=== PATIENT | female | born 1960 | race Caucasian/White ===

== ENCOUNTER 2017-08-09 07:44 | Day surgery (SDC) | payer BC ==
[2017-08-07 13:02] VITALS: BMI 27.3
[~2017-08-09 07:44] MED LIST: LACTATED RINGERS 1,000 ML IV SCH
[2017-08-09 08:20] VITALS: RESP 16; TEMP 98.3
[2017-08-09] MEDS ORDERED: LIDOCAINE 1% 20 ML VIAL (10MG/ML) FOR IV START INTRADERMA ONE (08:20)
[2017-08-09] MEDS ORDERED: PROPOFOL 10 MG/ML 20 ML VIAL IV ONE (09:07)
--- NOTE | 2017-08-09 09:29 | P.PCN ---
Date of Procedure: 08/09/17 Procedure(s) Performed: BRIEF HISTORY: Patient is a 57-year-old pleasant female, scheduled for an elective colonoscopy as a part of screening for colorectal neoplasia. PROCEDURE PERFORMED: Colonoscopy with snare polypectomy. PREOPERATIVE DIAGNOSIS: Screening for colon cancer. IV sedation per Anesthesia. PROCEDURE: After informed consent was obtained, the patient, was brought into the endoscopy unit. IV sedation was administered by Anesthesia under continuous monitoring. Digital rectal examination was normal. Initially the Olympus CF- 160 flexible video colonoscope was then inserted in the rectum, gradually advanced into the cecum without any difficulty. Careful examination was performed as the scope was gradually being withdrawn. Ileocecal valve and the appendiceal orifice were visualized and appeared normal. Prep was excellent. Mucosa of the cecum, ascending colon, transverse colon, descending colon, appeared normal. In the sigmoid colon there was a 7 mm sessile polyp removed by snare polypectomy. In the rectal sigmoid colon at 20 cm from the anal verge there was a 1 cm broad-based polyp removed by snare polypectomy. The rest of the sigmoid colon, and rectum appeared normal. Retroflexion was performed in the rectum and no lesions were seen. The patient tolerated the procedure well. IMPRESSION: 7 mm sessile sigmoid colon polyp status post polypectomy 1 cm broad-based rectal sigmoid polyp status post polypectomy. RECOMMENDATIONS: Findings of this examination were discussed with the patient as well as her family. She was advised to follow with the biopsy result. If the biopsy shows a tubular adenoma, she can have a repeat colonoscopy in 3-5 years.
[2017-08-09 09:57] VITALS: BP 150/80; PULSE 71
== END 2017-08-09 10:16 | disposition home or self-care (01) ==
LOC: ORWHC2ENDO 07:44
PROVIDERS: ATTEND Internal Medicine Gastroenterology
DX: Z12.11 Encounter for screening for malignant neoplasm of colon (principal); K63.5 Polyp of colon; K21.9 Gastro-esophageal reflux disease without esophagitis; E07.9 Disorder of thyroid, unspecified; E78.5 Hyperlipidemia, unspecified; Z79.82 Long term (current) use of aspirin; Z79.890 Hormone replacement therapy; Z79.899 Other long term (current) drug therapy; F17.210 Nicotine dependence, cigarettes, uncomplicated
CPT/HCPCS: 88305; 45385; J2704

== ENCOUNTER → 2018-05-07 | Outpatient (CLI) | payer BC ==
--- NOTE | 2018-05-07 09:34 | US ---
EXAMINATION TYPE: US thyroid st tissue head/neck DATE OF EXAM: 05/07/2018 COMPARISON: NONE CLINICAL HISTORY: E03.8 Hypothyroidism; takes thyroid medication GLAND SIZE: Right Lobe: 3.3 x 1.0 x 1.9 cm Overall Parenchyma: heterogenous Left Lobe: 3.6 x 1.1 x 1.3 cm Overall Parenchyma: heterogeneous Isthmus Thickness: 0.4 cm NODULES RIGHT: # of nodules measured on right: 2 1. 0.8 x 1.0 x 0.7 cm hypoechoic solid nodule at the upper pole with well-defined margins. This nod ule is wider than tall and shows no intranodular vascularity. 2. 0.4 X 0.3 x 0.5 cm hypoechoic cystic nodule at the mid pole with well-defined margins. This nod ule is wider than tall and shows no intranodular vascularity. LEFT: # of nodules measured on left: 1 discreet of multiple nodules 1. 0.7 X 0.5 x 0.5 cm echogenic solid nodule at the mid pole with well-defined margins. This nodul e is wide as is tall and shows no intranodular vascularity. ISTHMUS: # of nodules measured in the isthmus: 0 Bilateral neck scanned, no evidence of lymphadenopathy. IMPRESSION: Bilateral subcentimeter thyroid nodules that do not fit size criteria for fine-needle aspiration at t his time. Surveillance is recommended in this overall multinodular goiter.
[2018-05-07 10:51] LABS: Albumin 4.6 g/dL (3.5-5.0); Calcium 10.2 mg/dL (8.4-10.2); Potassium 4.8 mmol/L (3.5-5.1); Total Bilirubin 0.4 mg/dL (0.2-1.3); Total Protein 7.6 g/dL (6.3-8.2)
== END | disposition home or self-care (01) ==
LOC: RADUSWWP 08:49
PROVIDERS: ATTEND Internal Medicine Endocrinology, Diabetes & Metabolism
DX: E04.2 Nontoxic multinodular goiter (principal); E78.2 Mixed hyperlipidemia; E03.8 Other specified hypothyroidism
CPT/HCPCS: 36415; 76536; 80053; 80061; 84443

== ENCOUNTER → 2018-12-19 | Outpatient (CLI) | payer BC ==
[2018-12-19 17:19] LABS: African American GFR (CKD) 94.9 (60.0-200.0); Albumin 4.5 g/dL (3.80-4.90); Albumin/Globulin Ratio 2.14 (1.60-3.17); Anion Gap 9.4 mmol/L (4.00-12.00); Calcium 9.2 mg/dL (8.7-10.3); Carbon Dioxide 29.6 mmol/L (21.6-31.8); Chol/HDL Ratio 2.03; Globulin 2.1 g/dL (1.6-3.3); LDL Cholesterol,Calculated 77.6 mg/dL (0.0-131.0); Non-African American GFR(CKD) 81.8 (60.0-200.0); Potassium 4.2 mmol/L (3.5-5.5); Total Bilirubin 0.4 mg/dL (0.3-1.2); Total Protein 6.6 g/dL (6.2-8.2); VLDL Calculation 26.4 mg/dL (5.00-40.00)
== END | disposition home or self-care (01) ==
LOC: LABWHC1 09:38
PROVIDERS: ATTEND Internal Medicine Endocrinology, Diabetes & Metabolism
DX: E78.2 Mixed hyperlipidemia (principal); E03.8 Other specified hypothyroidism
CPT/HCPCS: 36415; 80053; 80061; 84443

== ENCOUNTER → 2019-03-10 | Outpatient (CLI) | payer BC ==
--- NOTE | 2019-03-10 16:01 | CTL ---
EXAMINATION TYPE: CT Low Dose Lung DATE OF EXAM ORDERED: 03/10/2019 HISTORY: Personal history of tobacco abuse. Lung cancer screening CT DLP: [address] CTDI: 2.22 mGy Automated exposure control for dose reduction was used. SCREENING VISIT: Initial COMPARISON: None TECHNIQUE: Low dose computed tomography scan was performed through the chest at 1 mm thick sections a nd reconstructed images in the coronal plane at [address] DIAGNOSTIC QUALITY: Limited, but interpretable FINDINGS: LUNG NODULES: None. LUNGS: COPD: Severity: Mild paraseptal most appreciable at the lung apices. Fibrosis: Severity: None Lymph nodes: Nonenlarged Other findings: Minimal lingular atelectasis. Mild right basilar peribronchial cuffing. RIGHT PLEURAL SPACE: Effusion: None Calcification: None Thickening: None Pneumothorax: None LEFT PLEURAL SPACE: Effusion: None Calcification: None Thickening: None Pneumothorax: None HEART: Heart Size: Normal Coronary calcification: None Pericardial effusion: None OTHER FINDINGS: Upper abdomen: Mostly unremarkable with some artifact centrally. Bony thorax: Mild multilevel degenerative changes of the spine. Supraclavicular region: Normal IMPRESSION: Lung RADS 1-negative. Mild emphysematous changes of the lung apices are seen with mild ri ght peribronchial cuffing that can be seen in reactive or infectious airway disease. This could be ch ronic and reactive and underlying COPD or relate to acute bronchitis. FOLLOW UP CT CHEST RECOMMENDATION: Annual low dose CT thorax is recommended in [address] LUNG RAD: 1
== END | disposition home or self-care (01) ==
LOC: RADCTMAIN 15:29
PROVIDERS: ATTEND Family Medicine
DX: Z12.2 Encounter for screening for malignant neoplasm of respiratory organs (principal); J43.9 Emphysema, unspecified; F17.210 Nicotine dependence, cigarettes, uncomplicated

== ENCOUNTER → 2019-07-03 | Outpatient (CLI) | payer BC ==
--- NOTE | 2019-07-03 14:53 | US ---
EXAMINATION TYPE: US thyroid st tissue head/neck DATE OF EXAM: 07/03/2019 COMPARISON: US 05/07/2018 CLINICAL HISTORY: E04.2 Thyroid nodule. F/U previous GLAND SIZE: Right Lobe: 2.8 x 1.5 x 1.1 cm Overall Parenchyma: heterogenous Left Lobe: 3.2 x 1.2 x 0.8 cm Overall Parenchyma: heterogeneous Isthmus Thickness: 0.3 cm NODULES RIGHT: # of nodules measured on right: 1 1. 0.3 X 0.4 x 0.3 cm hypoechoic solid nodule at the mid pole with poorly defined margins; This no dule is wider than tall and shows no intranodular vascularity. Prior size: 0.4 x 0.5 x 0.3 cm LEFT: # of nodules measured on left: 1 1. 0.6 X 0.4 x 0.4 cm isoechoic solid nodule at the mid pole with well-defined margins; This nodul e is wider than tall and shows no intranodular vascularity. Prior size: 0.7 x 0.5 x 0.5 cm Bilateral neck scanned, no evidence of lymphadenopathy. Stable nodules bilaterally. IMPRESSION: Bilateral subcentimeter thyroid nodules, similar in size to the prior exam of 05/07/2018.
== END | disposition home or self-care (01) ==
LOC: RADUSWWP 14:14
PROVIDERS: ATTEND Internal Medicine Endocrinology, Diabetes & Metabolism
DX: E04.2 Nontoxic multinodular goiter (principal)
CPT/HCPCS: 76536

== ENCOUNTER → 2019-07-04 | Outpatient (CLI) | payer BC ==
[2019-07-04 16:43] LABS: Chol/HDL Ratio 2.44; LDL Cholesterol,Calculated 92.6 mg/dL (0.0-131.0); VLDL Calculation 44.4 mg/dL (5.00-40.00)
== END | disposition home or self-care (01) ==
LOC: LABWHC1 08:07
PROVIDERS: ATTEND Internal Medicine Endocrinology, Diabetes & Metabolism
DX: E03.8 Other specified hypothyroidism (principal); E78.2 Mixed hyperlipidemia
CPT/HCPCS: 36415; 80061; 84443

== ENCOUNTER → 2019-09-04 | Outpatient (CLI) | payer BC ==
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
== END | disposition home or self-care (01) ==
LOC: RADUSWWP 10:06
PROVIDERS: ATTEND Family Medicine
DX: N90.89 Other specified noninflammatory disorders of vulva and perineum (principal); S39.94XA Unspecified injury of external genitals, initial encounter
CPT/HCPCS: 76857

== ENCOUNTER → 2020-07-01 | Outpatient (CLI) | payer BC ==
[2020-07-01 08:35] LABS: T4, Free (Free Thyroxine) 1.09 ng/dL (0.78-2.19)
--- NOTE | 2020-07-01 16:09 | US ---
EXAMINATION TYPE: US thyroid st tissue head/neck DATE OF EXAM: 07/01/2020 COMPARISON: CLINICAL HISTORY: E042 Goiter,E78.2. Follow up nodules. On thyroid meds. GLAND SIZE: Right Lobe: 3.6 x 1.1 x 1.5 cm Overall Parenchyma: heterogenous Left Lobe: 2.7 x 1.0 x 1.1 cm Overall Parenchyma: heterogeneous Isthmus Thickness: 0.2 cm NODULES RIGHT: # of nodules measured on right: 1 1. 0.5 X 0.4 x 0.4 cm Mid pole solid or almost completely solid, hypoechoic nodule, which is wide a s tall, with ill-defined margins, without echogenic foci. Prior size: 0.3 x 0.4 x 0.3 cm LEFT: # of nodules measured on left: 1 1. 0.6 X 0.5 x 0.4 cm Mid pole solid or almost completely solid, hypoechoic nodule, which is wider than tall, with smooth margins, without echogenic foci. Prior size: 0.6 x 0.4 x 0.4 cm ISTHMUS: # of nodules measured in the isthmus: 0 Bilateral neck scanned, no evidence of lymphadenopathy. IMPRESSION: Subcentimeter nodules bilateral thyroid lobes 2017 ACR TI-RADS LEVEL: TR-RADS 4 - Moderately Suspicious: Follow if > 1 cm, FNA if > 1.5 cm *Highest TI-RADS level nodule reported
== END ==
LOC: RADUSWWP 07:14
PROVIDERS: ATTEND Internal Medicine Endocrinology, Diabetes & Metabolism
DX: E04.2 Nontoxic multinodular goiter (principal)
CPT/HCPCS: 76536; 80061; 84439; 84443

== ENCOUNTER → 2022-12-26 | Outpatient (CLI) | payer BC ==
--- NOTE | 2022-12-26 09:55 | US ---
EXAMINATION TYPE: US thyroid st tissue head/neck DATE OF EXAM: 12/26/2022 COMPARISON: 08/02/2021 CLINICAL INDICATION: Female, 62 years old with history of E04.2 NONTOXIC MULTINODULAR GOITER; on Synt hroid for years, f/u exam, no issues GLAND SIZE: Right Lobe: 2.8 x 0.9 x 1.1 cm Overall Parenchyma: heterogenous Left Lobe: 3.1 x 0.9 x 1.5 cm Overall Parenchyma: heterogenous Isthmus Thickness: 0.3 cm NODULES RIGHT: # of nodules measured on right: 1 1. 0.6 X 0.4 x 0.4 cm, mid , solid or almost completely solid, hypoechoic TR 4 nodule, which is wid er than tall, with smooth margins, without echogenic foci. Prior size: 0.9 x 0.6 x 0.8 cm LEFT: # of nodules measured on left: 0 ISTHMUS: # of nodules measured in the isthmus: 0 Bilateral neck scanned, no evidence of lymphadenopathy. Gland is smaller then previous exams IMPRESSION: Small thyroid gland suggests chronic hypothyroidism. A solitary solid TR4 nodule on the right is also smaller at 6 mm versus 9 mm, previously.
== END | disposition home or self-care (01) ==
LOC: RADUSWWP 06:55
PROVIDERS: ATTEND Internal Medicine Endocrinology, Diabetes & Metabolism
DX: E04.2 Nontoxic multinodular goiter (principal); Z79.890 Hormone replacement therapy
CPT/HCPCS: 76536

== ENCOUNTER → 2022-12-26 | Outpatient (CLI) | payer BC ==
[2022-12-26 13:51] LABS: T4, Free (Free Thyroxine) 1.43 ng/dL (0.80-1.80)
== END | disposition home or self-care (01) ==
LOC: LABWHC1 07:00
PROVIDERS: ATTEND Internal Medicine Endocrinology, Diabetes & Metabolism
DX: E04.2 Nontoxic multinodular goiter (principal)
CPT/HCPCS: 36415; 84439; 84443